=== PATIENT | female | born 1960 | race Caucasian/White ===

== ENCOUNTER 2018-01-04 02:20 | Observation (INO) | payer BC ==
[2018-01-04] MEDS ORDERED: Morphine INJ* 2 MG/ML 1 ML SYRINGE (TWO MG - NEW SYRINGE VERSION) IV PRN (02:45)
[2018-01-04] MEDS ORDERED: Ondansetron INJ* 2 MG/ML VIAL IV PRN (02:45)
[2018-01-04] MEDS ORDERED: Acetaminophen TAB* 325 MG PO PRN (02:45)
--- NOTE | 2018-01-04 02:50 | ED ---
Abdominal Pain/Female - HPI Summary HPI Summary: Pt is a 57 y/o F who presents to ED c/o RLQ pain since 19:00 this evening. She was sent to [facility] from [facility] for further evaluation of abdominal pain. Rates her pain intensity as 5/10 in severity when area is palpated and describes it as an aching. Notes nausea and denies vomiting. Last ate at 18:30 this evening. - History of Current Complaint Chief Complaint: EDAbdPain Stated Complaint: POS APENDICITIS Time Seen by Provider: 01/04/18 02:29 Hx Obtained From: Patient Onset/Duration: Sudden Onset, Lasting Hours, Still Present Severity Currently: Moderate Pain Intensity: 5 Pain Scale Used: 0-10 Numeric Location: Discrete At: RLQ Character: Other: - Aching Associated Signs and Symptoms: Positive: Nausea. Negative: Fever, Vomiting Allergies/Adverse Reactions: Allergies Allergy/AdvReac Type Severity Reaction Status Date / Time No Known Allergies Allergy Verified 01/04/18 02:24 Home Medications: Home Medications NK [No Home Medications Reported] 01/04/18 [History Confirmed 01/04/18] PMH/Surg Hx/FS Hx/Imm Hx Endocrine/Hematology History: Denies: Hx Diabetes Cardiovascular History: Denies: Hx Hypertension Infectious Disease History: No Infectious Disease History: Denies: Traveled Outside the [place] in Last 30 Days - Family History Known Family History: Positive: Diabetes - Social History Alcohol Use: None Substance Use Type: Reports: None Smoking Status (MU): Never Smoked Tobacco Review of Systems Negative: Fever Positive: Abdominal Pain, Nausea. Negative: Vomiting All Other Systems Reviewed And Are Negative: Yes Physical Exam - Summary Physical Exam Summary: Appearance: Well-appearing, Well-nourished, lying in bed comfortably Skin: Warm, dry, no obvious rash Eyes: sclera anicteric, no conjunctival pallor ENT: mucous membranes moist, pharynx appears normal Neck: Supple, nontender Respiratory: Clear to auscultation, no signs of respiratory distress Cardiovascular: Normal S1, S2. No murmurs. Normal distal pulses in tibial and radial bilaterally. Abdomen: Soft, nontender, normal active bowel sounds present Musculoskeletal: Normal, Strength/ROM Intact Neurological: A&Ox3, awake and alert, mentation is normal, speech is fluent and appropriate Psychiatric: affect is normal, does not appear anxious or depressed Triage Information Reviewed: Yes Vital Signs On Initial Exam: Initial Vitals Temp Pulse Resp BP Pulse Ox 98.5 F 86 20 130/81 100 01/04/18 02:20 01/04/18 02:20 01/04/18 02:20 01/04/18 02:20 01/04/18 02:20 Vital Signs Reviewed: Yes Diagnostics - Vital Signs Vital Signs Temp Pulse Resp BP Pulse Ox 01/04/18 02:20 98.5 F 86 20 130/81 100 - Laboratory Lab Statement: Any lab studies that have been ordered have been reviewed, and results considered in the medical decision making process. Abdominal Pain Fem Course/Dx - Course Course Of Treatment: Pt is a 57 y/o F who presents to ED c/o RLQ pain since 19: 00 this evening. She was sent to [facility] from [facility] for further evaluation of abdominal pain. Rates her pain intensity as 5/10 in severity when area is palpated and describes it as an aching. Notes nausea and denies vomiting. Physical exam was normal. In the ED course pt was given morphine, fluids, Zofran, and Tylenol. Pt diagnosed with acute appendicitis. Spoke with Dr. Angela who agreed to admit pt to hospital. Pt is agreeable with this plan. - Diagnoses Provider Diagnoses: Acute appendicitis - Provider Notifications Discussed Care Of Patient With: Abiel Angela Time Discussed With Above Provider: 02:45 Instructed by Provider To: Other - Dr. Angela will admit pt to hospital. Discharge - Sign-Out/Discharge Documenting (check all that apply): Patient Departure - Admit - Discharge Plan Condition: Stable Disposition: ADMITTED TO [facility] - Attestation Statements Document Initiated by Scribe: Yes Documenting Scribe: Mira Casanova Provider For Whom Scribe is Documenting (Include Credential): Dr. Tito Brown MD Scribe Attestation: Mira Garcia, scribed for Dr. Tito Brown MD on 01/04/18 at 0425.
[2018-01-04] MEDS: NS 0.9% 1000 ML* 1,000 ML IV SCH ×2 (02:59→03:30)
[2018-01-04 05:32] LABS: ABS Basophils 0.1 10^3/ul (0-0.2); ABS Eosinophils 0.3 10^3/ul (0-0.6); ABS Lymphocytes 2.2 10^3/ul (1.0-4.8); ABS Monocytes 0.9 10^3/ul (0-0.8); ABS Nucleated RBC 0 10^3/ul; Eosinophil % 2.4 % (0-6); Hematocrit 36 % (35-47); Hemoglobin 11.9 g/dl (12.0-16.0); Lymphocyte % 17.6 % (25-47); Mean Corpuscular HGB Conc 33 g/dl (31-36); Mean Corpuscular Hemoglobin 32 pg (27-31); Mean Corpuscular Volume 95 fL (80-97); Nucleated Red Blood Cells % 0.1; Platelet Count 293 10^3/ul (150-450); Red Blood Count 3.74 10^6/ul (4.00-5.40); Red Cell Distribution Width 14 % (10.5-15); White Blood Count 12.4 10^3/ul (3.5-10.8)
[2018-01-04] MEDS ORDERED: Piperacillin/Tazobac ADVAN(*) 3.375 GM in NS 0.9% 100 ML* 100 ML IVPB ONE (08:17)
[2018-01-04] MEDS ORDERED: Piperacillin/Tazobac ADVAN(*) 3.375 GM in NS 0.9% 50 ML* 50 ML IVPB ONE (08:36)
[2018-01-04] MEDS ORDERED: Zosyn per Pharmacy* NOTE FOLLOW UP SCH (09:00)
--- NOTE | 2018-01-04 09:16 | HP ---
CC: [facility] HISTORY AND PHYSICAL: DATE OF ADMISSION: 01/04/18 CHIEF COMPLAINT: Right lower quadrant abdominal pain. HISTORY OF PRESENT ILLNESS: Andreea Castelan is a very pleasant 57-year-old woman visiting the area from [place], [place], where she lives, who late in the afternoon prior to eating dinner developed some generalized abdominal pain associated with some nausea without vomiting. The pain was described as somewhat diffuse and she had no diarrhea or change in bowel habits. She had no urinary complaints. The pain became quite severe. She presented to the Emergency Room at [facility] at around dinnertime last night and then subsequently started to feel better, but became anorexic. When she was seen there, she was noted be afebrile, but did have a white blood cell count of 16,000. She had a slight left shift. Electrolytes, BUN and creatinine, as well as liver transaminases, and bilirubin were all unremarkable. She underwent an ultrasound of her gallbladder, which showed a large gallstone of the neck of the gallbladder, but no sign of gallbladder wall thickening, pericholecystic fluid, or findings to suggest acute cholecystitis. Also, she underwent a pelvic ultrasound, which was unremarkable. I do not have the official reports of these findings, but did look at the images personally. Her pain became more localized in the right lower quadrant. She underwent a CAT scan of the abdomen and pelvis with IV contrast only. This shows findings consistent with a mildly thickened appendix with periappendiceal inflammation consistent with early appendicitis. There is no evidence of extraluminal air fluid or other findings to suggest perforation. She was transferred from the emergency room here to [facility] last night and has been kept n.p.o. Today, she still complains of right lower quadrant abdominal pain and is anorexic. She has had no vomiting and she has had no diarrhea. She did receive 1 dose of cefoxitin in the emergency room there. PAST MEDICAL HISTORY: Unremarkable. PAST SURGICAL HISTORY: 1. Fracture of the right wrist with hardware. 2. Knee arthroscopy. MEDICATIONS: None. ALLERGIES: She has no known drug allergies. SOCIAL HISTORY: She does not smoke. She is . She drinks alcohol on a social basis. REVIEW OF SYSTEMS: Cerebrovascular: No dizziness or visual disturbances. Cardiovascular: No chest pain, shortness of breath. Pulmonary: No wheezing, hemoptysis or asthma. GI: As per above. She has no chronic abdominal pain. She has never had discomfort like this before. : Last period was almost a year ago and she thinks that she is menopausal. PHYSICAL EXAMINATION GENERAL: She is a well-developed, slightly overweight female, in no apparent distress. VITAL SIGNS: Temperature 98, pulse 82, blood pressure 133/72. HEENT: Sclerae are anicteric. Oral mucosa is slightly dry. LUNGS: Clear to auscultation with normal respiratory effort. HEART: Regular rate and rhythm without murmurs, rubs, or gallops. ABDOMEN: Soft and nondistended. She has diminished bowel sounds throughout. There are no hernias or prior surgical incisions. She has tenderness localized in the right lower quadrant with rigidity and guarding with very localized peritoneal irritation. There was no generalized peritonitis. EXTREMITIES: Showed no cyanosis or edema. PSYCHIATRIC: She is awake, alert, and oriented x3. She has normal judgment and insight. LABORATORY DATA: Laboratory values today include white blood count of 12,400. Neutrophils are normal. IMPRESSION: Acute appendicitis, clinically as well as by CAT scan findings. The patient has been transferred to [facility] here from the [place] [facility] with the above history and workup. I discussed the findings of the workup and her clinical exam with the patient and her here at the bedside. I believe she has early acute appendicitis and recommended we proceed with a laparoscopic appendectomy today. We discussed alternatives to surgery including IV antibiotics, which is not the usual recommended course of treatment here in the [place], but I did give them this option, especially since they are out of town, but after our discussion would like to proceed with the surgery. PLAN: Laparoscopic appendectomy today. The procedure was discussed with the patient and her , The risks are, but not limited to bleeding, infection , intraabdominal abscess formation, injury to peritoneal and retroperitoneal structures, abscess formation with staple line leak, prolonged ileus, cardiopulmonary effects and risks of anesthesia, probable hospital stay, and activity restrictions were discussed. I have placed her on the operative schedule and we will proceed when there is availability. We will keep her n.p.o. and start her on IV antibiotics and continue with the IV fluids. [id number]/[facility] #: [id number] [facility] CENTERJeni
[2018-01-04] MEDS ORDERED: Bupivacaine 0.25% EPI 200,000* 30 ML SDV ONE (12:31)
[2018-01-04] MEDS ORDERED: fentaNYL* 50 MCG/ML 2 ML VIAL (100 MCG VIAL) ONE ×2 (12:43→14:12)
[2018-01-04] MEDS ORDERED: Midazolam* 1 MG/ML 2 ML VIAL (2 MG) ONE (12:43)
[2018-01-04] MEDS ORDERED: Dexamethasone IV* 4 MG/ML 1 ML (4 MG) ONE (12:53)
[2018-01-04] MEDS ORDERED: Ondansetron INJ* 2 MG/ML VIAL ONE (12:53)
[2018-01-04] MEDS ORDERED: Succinylcholine* 20 MG/ML 10 ML VIAL ONE (12:53)
[2018-01-04] MEDS ORDERED: Lidocaine 2% PF * 5 ML VIAL ONE (12:53)
[2018-01-04] MEDS ORDERED: Propofol* 10 MG/ML 20 ML BTL IV PUSH ONE (12:53)
[2018-01-04] MEDS ORDERED: HYDROmorphone INJ1* 1 MG/ML SYRINGE IV PRN (13:44)
[2018-01-04] MEDS ORDERED: PROCHLORPERAZINE INJ 5 MG/ML 2 ML VIAL IV PRN (13:44)
[2018-01-04] MEDS ORDERED: Naloxone* 0.4 MG/ML 1 ML VIAL IV PRN (13:44)
--- NOTE | 2018-01-04 13:45 | BRIEFOPN ---
Brief Operative Note - Surgery Procedures: 01/04/18 Op Note (dictated) Pre-op dx: appendicitis Post-op dx: same Procedure: laparoscopic appendectomy Surgeon: Naif Asst: none Anesth: general EBL: 5 cc Complications: none SCDs: on during surgery ABx: given therapeutically Pt. tolerated procedure well and was transferred to in aa stable condition. CLFoster
[2018-01-04] MEDS ORDERED: HYDROcodone/ACETAMIN 5-325 MG* 1 TAB PO PRN (13:49)
[2018-01-04] MEDS ORDERED: ZOSYN 3.375 GM Q8H per EXTENDED INFUSION IVPB SCH ×2 (14:00)
[2018-01-04] MEDS ORDERED: HYDROcodone/ACETAMIN 5-325 MG* 1 TAB ONE (14:12)
[2018-01-04] MEDS: fentaNYL* 50 MCG/ML 2 ML VIAL (100 MCG VIAL) IV PRN ×2 (14:15→14:33)
[2018-01-04 15:45] VITALS: BP 135/81
--- NOTE | 2018-01-05 00:17 | OP ---
CC: [facility] OPERATIVE REPORT: DATE OF OPERATION: 01/04/18 DATE OF : 64 SURGEON: Birdie Disla MD LAYER OUT: There was no assistant professor of business for this case. PRE-OP DIAGNOSIS: Appendicitis. POST-OP DIAGNOSIS: Appendicitis. OPERATIVE PROCEDURE: Laparoscopic appendectomy. INDICATIONS: Ms. Mascorro is a 57-year-old male who presented to the hospital with abdominal pain. Elizabeth whitehead was admitted for IV antibiotics and prepared for surgery after a CAT scan showed acute appendicitis . DESCRIPTION OF PROCEDURE: She was brought to the operating room, placed on the OR table in the supin e position and given general anesthesia. The abdomen was then prepped and draped in usual sterile fa shion. After infiltrating with local anesthetic, an incision was made in the infraumbilical area and subcutaneous tissue was divided bluntly. The fascia was grasped and incised and a 0-Vicryl stitch w as placed on either side of the fascial incision. A trocar was inserted into the abdomen and the abd omen was insufflated. Then under direct visualization after infiltrating with local anesthetic, a po rt was placed in the suprapubic area and in the left flank area. The instruments were inserted throu gh the ports and the cecum was rotated medially, which exposed an acutely inflamed appendix with some fibrinopurulent exudate on its surface. The base of the appendix was clear of the infective process however, so it was cleared and an EndoGIA stapler was fired across the base of the appendix. A seco nd firing was fired across the mesoappendix and when it was recognized that there were some additiona l mesoappendix a third firing was fired across the remaining mesoappendix. The appendix was then delmar carlin in an EndoCatch bag and withdrawn from the abdomen through the infraumbilical port site. A brief inspection of the rest of the abdomen revealed no obvious abnormalities although the gallbladder was somewhat distended. The liver appeared normal. Then, the small and large intestine that were visua lized appeared normal, but visualization was limited due to adipose. All ports were then withdrawn u nder direct visualization. The previously placed 0 Vicryl was used to approximate the infraumbilical fascial incision and it required an additional stitch of 0 Vicryl to complete the closure of the inf raumbilical fascia. Then, 4-0 Monocryl was used to close the skin of all incisions. Steri-strips we re applied. All sponge and instrument counts were correct. The patient tolerated the procedure well and was transferred to recovery in a stable condition. [id number]/[facility] #: [id number]
== END 2018-01-04 15:46 | disposition home or self-care (01) ==
LOC: ED 02:20 → SSU 02:43
PROVIDERS: ADMIT Surgery; ATTEND Surgery
PROC: 0DTJ4ZZ Resection of Appendix, Percutaneous Endoscopic Approach (ICD-10-PCS; principal; 2018-01-04 12:30)
DX: K35.80 Unspecified acute appendicitis (principal)
CPT/HCPCS: 36415; 85025; C1776; J0330; J1100; J2250; J2405; J2543; J2704; J3010